=== PATIENT | female | born 1985 | race Caucasian/White ===

== ENCOUNTER 2019-05-22 18:53 | Outpatient (CLI) | payer OTHER ==
[2019-05-22] MEDS ORDERED: LACTATED RINGERS 1,000 ML IV ONE (20:47)
[2019-05-22] MEDS ORDERED: PSEUDOEPHEDRINE 30 MG TAB PO ONE (21:19)
[2019-05-22 21:35] LABS: Bacteria,Urine 1+ /HPF (Negative); Bilirubin,Urine NEG (Negative); Blood,Urine NEG (Negative); Color,Urine Yellow (Yellow); Protein,Urine <15 mg/dL mg/dL (Negative); Urobilinogen,Urine < 2.0 mg/dL (<2.0)
[2019-05-22 22:13] VITALS: BP 120/66
--- NOTE | 2019-05-22 22:57 | Ultrasound Report ---
Obstetrical ultrasound. 05/22/2019. HISTORY: Vaginal bleeding. FINDINGS: A single viable intrauterine in the breech presentation is dated 21 weeks 0 days. The placenta is located at the fundus. Negative for abruption. heart tones are 143 bpm. Cervical length is 3.1 cm. Estimated weight is 411 g. Amniotic fluid is subjectively normal. IMPRESSION: 1. Early viable intrauterine dated 21 weeks 0 days. 2. Negative for abruption. Signer Name: Lg Lopez MD Signed: 05/22/2019 10:52 PM Workstation Name: [id number]
== END 2019-05-22 22:25 | disposition home or self-care (01) ==
LOC: MERGE 18:53 → TRG 18:53
PROVIDERS: ATTEND Obstetrics & Gynecology
DX: O46.92 Antepartum hemorrhage, unspecified, second trimester (principal); Z3A.20 20 weeks gestation of pregnancy
CPT/HCPCS: 76805; 81001

== ENCOUNTER 2019-06-27 12:56 | Emergency (ER) | payer MEDICAID ==
--- NOTE | 2019-06-27 14:23 | Event Note ---
ED Screening Note ED Screening Note: 7 months headache fever body aches no vomiting no diarrhea yesterday no abd pain no vaginal no PMHx no allergies to meds [employer]AF PRINTER: [facility]
[2019-06-27 14:25] VITALS: BP 118/79
--- NOTE | 2019-06-27 14:25 | Emergency Department Report ---
- General Chief Complaint: Weakness Stated Complaint: COLD/FLU SX Time Seen by Provider: 06/27/19 14:21 Source: patient Mode of arrival: Ambulatory Limitations: Language Barrier - History of Present Illness Initial Comments: pt is a 33 yo female who presents to the ED with c/o flu symptoms that began yesterday. she is currently 7 months . she has associated headache, feve r. she denies any vomiting, diarrhea, abd pain or vaginal bleeding. no PMHx. no allergies to meds. 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 her children at home also have flu like symptoms. - Related Data Home Medications Medication Instructions Recorded Confirmed Last Taken Plus Multivitamin Tab 1 tab PO DAILY 07/06/15 07/06/15 07/05/15 09:00 Previous Rx's Medication Instructions Recorded Last Taken Type Pnv,Calcium 72/Iron/Folic Acid 1 each PO DAILY #30 tablet 01/16/15 Unknown Rx [ Plus Tablet] Ibuprofen [Motrin 600 MG tab] 600 mg PO Q8H PRN #30 tablet 07/07/15 Unknown Rx Multivitamin with Iron 1 each PO DAILY #30 tablet 07/07/15 Unknown Rx [Multivitamins with Iron] oxyCODONE /ACETAMINOPHEN [Percocet 1 tab PO Q6HR PRN #30 tablet 07/07/15 Unknown Rx 5/325] medroxyPROGESTERone ACETATE 10 mg PO QDAY #10 tablet 01/31/16 Unknown Rx [Provera] traMADoL [Ultram] 50 mg PO Q6HR PRN #14 tablet 01/31/16 Unknown Rx Oseltamivir [Tamiflu] 75 mg PO BID 5 Days #10 cap 06/27/19 Unknown Rx Allergies Allergy/AdvReac Type Severity Reaction Status Date / Time No Known Allergies Allergy Verified 05/23/19 08:51 ED Review of Systems ROS: Stated complaint: COLD/FLU SX Other details as noted in HPI Comment: All other systems reviewed and negative ED Past Medical Hx - Past Medical History Previous Medical History?: Yes Hx Hypertension: No Hx Congestive Heart Failure: No Hx Diabetes: No Hx Deep Vein Thrombosis: No Hx Renal Disease: No Hx Sickle Cell Disease: No Hx Seizures: No Hx Psychiatric Treatment: Yes (DEPRESSION) Hx Asthma: No Hx COPD: No Hx HIV: No Additional medical history: Pt had high blood pressure during - Surgical History Past Surgical History?: Yes Additional Surgical History: x 3 - Social History Smoking Status: Never Smoker - Medications Home Medications: Home Medications Medication Instructions Recorded Confirmed Last Taken Type Pnv,Calcium 72/Iron/Folic Acid 1 each PO DAILY #30 tablet 01/16/15 Unknown Rx [ Plus Tablet] Plus Multivitamin Tab 1 tab PO DAILY 07/06/15 07/06/15 07/05/15 09:00 History Ibuprofen [Motrin 600 MG tab] 600 mg PO Q8H PRN #30 tablet 07/07/15 Unknown Rx Multivitamin with Iron 1 each PO DAILY #30 tablet 07/07/15 Unknown Rx [Multivitamins with Iron] oxyCODONE /ACETAMINOPHEN [Percocet 1 tab PO Q6HR PRN #30 tablet 07/07/15 Unknown Rx 5/325] medroxyPROGESTERone ACETATE 10 mg PO QDAY #10 tablet 01/31/16 Unknown Rx [Provera] traMADoL [Ultram] 50 mg PO Q6HR PRN #14 tablet 01/31/16 Unknown Rx Oseltamivir [Tamiflu] 75 mg PO BID 5 Days #10 cap 06/27/19 Unknown Rx ED Physical Exam - General Limitations: No Limitations General appearance: alert, in no apparent distress - Head Head exam: Present: atraumatic, normocephalic - Eye Eye exam: Present: normal appearance - ENT ENT exam: Present: normal orophraynx, mucous membranes moist, TM's normal bilaterally, normal external ear exam, other (clear nasal drainage) - Respiratory Respiratory exam: Present: normal lung sounds bilaterally. Absent: respiratory distress, wheezes, rales, rhonchi, stridor, chest wall tenderness, accessory muscle use, decreased breath sounds, prolonged expiratory - Cardiovascular Cardiovascular Exam: Present: regular rate, normal rhythm, normal heart sounds. Absent: systolic murmur, diastolic murmur, rubs, gallop - Neurological Exam Neurological exam: Present: alert, oriented X3 - Psychiatric Psychiatric exam: Present: normal affect, normal mood - Skin Skin exam: Present: warm, dry, intact ED Course Vital Signs 06/27/19 06/27/19 14:21 16:49 Temperature 98.6 F Pulse Rate 97 H Respiratory 18 18 Rate Blood Pressure 118/79 Blood Pressure 118/79 [Right] O2 Sat by Pulse 98 Oximetry ED Medical Decision Making - Medical Decision Making pt is a 33 yo female who presents to the ED with c/o flu symptoms that began yesterday. she is currently 7 months . she has associated headache, fever. she denies any vomiting, diarrhea, abd pain or vaginal bleeding. no PMHx. no allergies to meds. 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 her children at home also have flu like symptoms. vitals are stable. normal oropharynx, normal TMs and canals, breath sounds are clear bilaterally. Patient has clinical signs and symptoms of influenza and has had sick contacts. Will place patient on tamiflu. advised pt please take medication as prescribed. increase your fluid intake over the next several days.may take tylenol for headache or fever. may use a humidifier. follow up with your primary care doctor and PAEDIATRIC PHYSIOTHERAPIST in the next 2-3 days for reevaluation. return to the emergency room immediately for any new or worsening symptoms. language interpretation by security operations analyst - Differential Diagnosis influenza, URI, PNA, otitis, pharyngitis, sinusitis Critical care attestation.: If time is entered above; I have spent that time in minutes in the direct care of this critically ill patient, excluding procedure time. ED Disposition Clinical Impression: Influenza Disposition: DC-01 TO HOME OR SELFCARE Is pt being admited?: No Does the pt Need Aspirin: No Condition: Stable Instructions: Influenza (ED) Additional Instructions: please take medication as prescribed. increase your fluid intake over the next several days.may take tylenol for headache or fever. may use a humidifier. follo w up with your primary care doctor and PAEDIATRIC PHYSIOTHERAPIST in the next 2-3 days for reevaluation. return to the emergency room immediately for any new or worsening symptoms. por favor tome la medicacin segn lo prescrito. aumente la ingesta de lquidos en los prximos chavez. Puede stacey tylenol para el dolor de pratima o la fiebre. puede usar un humidificador. marco un seguimiento con shaver mdico de atencin pr imaria y obstetra / gineclogo en los prximos 2-3 chavez para la reevaluacin. Regrese a la rose marie de emergencias de inmediato por cualquier sntoma nuevo o que empeore. Prescriptions: Oseltamivir [Tamiflu] 75 mg PO BID 5 Days #10 cap Referrals: your, primary care doctor [Other] - 2-3 Days your, PAEDIATRIC PHYSIOTHERAPIST [Other] - 2-3 Days Time of Disposition: 15:14 Print Language: TANZANIAN
[2019-06-27] MEDS ORDERED: ACETAMINOPHEN 325 MG TAB PO ONE (16:39)
== END 2019-06-27 16:50 | disposition home or self-care (01) ==
LOC: ED 12:56
DX: O99.513 Diseases of the respiratory system complicating pregnancy, third trimester (principal); J11.1 Influenza due to unidentified influenza virus with other respiratory manifestations; Z3A.28 28 weeks gestation of pregnancy
CPT/HCPCS: 99282

== ENCOUNTER 2021-12-12 19:22 | Inpatient (IN) | payer SELFPAY ==
[2021-12-12 21:09] LABS: Basophils % (Auto) 0.2 % (0.0-1.8); Eosinophils # (Auto) 0.1 K/mm3 (0.0-0.4); Eosinophils % (Auto) 0.4 % (0.0-4.3); Hematocrit 33.7 % (30.3-42.9); Hemoglobin 11.3 gm/dl (10.1-14.3); Lymphocytes # (Auto) 1.8 K/mm3 (1.2-5.4); Lymphocytes % (Auto) 14.4 % (13.4-35.0); Mean Corpuscular HGB Conc 34 % (30-34); Mean Corpuscular Volume 82 fl (79-97); Monocytes # (Auto) 0.8 K/mm3 (0.0-0.8); Monocytes % (Auto) 6.8 % (0.0-7.3); Platelet Count 258 K/mm3 (140-440); Red Blood Count 4.13 M/mm3 (3.65-5.03); Red Cell Distribution Width 15.5 % (13.2-15.2)
[2021-12-12 21:35] LABS: Alanine Aminotransferase 24 units/L (7-56); Albumin 4.5 g/dL (3.9-5); Blood Urea Nitrogen 9 mg/dL (7-17); Calcium 9.1 mg/dL (8.4-10.2); Hemolysis Index 9
[2021-12-12 21:44] LABS: BUN/Creatinine Ratio 23
[2021-12-12] MEDS ORDERED: ONDANSETRON 4 MG/2 ML INJ IV ONE (22:22)
[2021-12-12] MEDS ORDERED: SODIUM CHLORIDE 0.9% 1000 ML 1,000 ML IV ONE (22:22)
[2021-12-12] MEDS ORDERED: MORPHINE 4 MG/1 ML INJ IV ONE ×2 (22:22→22:23)
--- NOTE | 2021-12-12 23:10 | Emergency Department Report ---
ED Abdominal Pain HPI - General Chief Complaint: Abdominal Pain Stated Complaint: STOMACH PAIN Time Seen by Provider: 12/12/21 23:08 Source: patient Mode of arrival: Ambulatory Limitations: Language Barrier - History of Present Illness Initial Comments: 35-year-old female no significant past medical history presents to the hospital from urgent care clinic with abdominal pain. Patient has had upper quadrant pain since this morning with associated nausea and vomiting. No fever reported. hx of x 3. Pain is moderate to severe in intensity, worse with palpation, and no alleviating factors reported. No urinary symptoms reported. Severity scale (0 -10): 10 - Related Data Home Medications Medication Instructions Recorded Confirmed Last Taken Plus Multivitamin Tab 1 tab PO DAILY 07/06/15 07/06/15 07/05/15 09:00 Previous Rx's Medication Instructions Recorded Last Taken Type Pnv,Calcium 72/Iron/Folic Acid 1 each PO DAILY #30 tablet 01/16/15 Unknown Rx [ Plus Tablet] Ibuprofen [Motrin 600 MG tab] 600 mg PO Q8H PRN #30 tablet 07/07/15 Unknown Rx Multivitamin with Iron 1 each PO DAILY #30 tablet 07/07/15 Unknown Rx [Multivitamins with Iron] oxyCODONE /ACETAMINOPHEN [Percocet 1 tab PO Q6HR PRN #30 tablet 07/07/15 Unknown Rx 5/325] medroxyPROGESTERone ACETATE 10 mg PO QDAY #10 tablet 01/31/16 Unknown Rx [Provera] traMADoL [Ultram] 50 mg PO Q6HR PRN #14 tablet 01/31/16 Unknown Rx Oseltamivir [Tamiflu] 75 mg PO BID 5 Days #10 cap 06/27/19 Unknown Rx Allergies Allergy/AdvReac Type Severity Reaction Status Date / Time No Known Allergies Allergy Verified 05/23/19 08:51 ED Review of Systems ROS: Stated complaint: STOMACH PAIN Other details as noted in HPI Comment: All other systems reviewed and negative ED Past Medical Hx - Past Medical History Hx Hypertension: No Hx Congestive Heart Failure: No Hx Diabetes: No Hx Deep Vein Thrombosis: No Hx Renal Disease: No Hx Sickle Cell Disease: No Hx Seizures: No Hx Psychiatric Treatment: Yes (DEPRESSION) Hx Asthma: No Hx COPD: No Hx HIV: No Additional medical history: Pt had high blood pressure during - Surgical History Additional Surgical History: x 3 - Social History Smoking Status: Never Smoker - Medications Home Medications: Home Medications Medication Instructions Recorded Confirmed Last Taken Type Pnv,Calcium 72/Iron/Folic Acid 1 each PO DAILY #30 tablet 01/16/15 Unknown Rx [ Plus Tablet] Plus Multivitamin Tab 1 tab PO DAILY 07/06/15 07/06/15 07/05/15 09:00 History Ibuprofen [Motrin 600 MG tab] 600 mg PO Q8H PRN #30 tablet 07/07/15 Unknown Rx Multivitamin with Iron 1 each PO DAILY #30 tablet 07/07/15 Unknown Rx [Multivitamins with Iron] oxyCODONE /ACETAMINOPHEN [Percocet 1 tab PO Q6HR PRN #30 tablet 07/07/15 Unknown Rx 5/325] medroxyPROGESTERone ACETATE 10 mg PO QDAY #10 tablet 01/31/16 Unknown Rx [Provera] traMADoL [Ultram] 50 mg PO Q6HR PRN #14 tablet 01/31/16 Unknown Rx Oseltamivir [Tamiflu] 75 mg PO BID 5 Days #10 cap 06/27/19 Unknown Rx ED Physical Exam - General Limitations: Language Barrier - Other Other exam information: General: Mild distress secondary to pain Head: Atraumatic Eyes: normal appearance ENT: Moist mucous membranes Neck: Normal appearance, no midline tenderness Chest: Clear to auscultation bilaterally CV: Regular rate and rhythm Abdomen: Soft, normal bowel sounds, right upper quadrant tenderness, nondistended, no rebound or guarding Back: Normal inspection Extremity: Normal inspection, full range of motion Neuro: Alert O x 3, no facial asymmetry, speech clear, no gross motor sensory deficit Psych: Appropriate behavior Skin: No rash ED Course Vital Signs 12/12/21 20:47 Temperature 98.1 F Pulse Rate 64 Respiratory 16 Rate Blood Pressure 147/79 O2 Sat by Pulse 100 Oximetry - Reevaluation(s) Reevaluation #1: 12/13/21 02:02 Patient still having pain and vomited despite morphine and Zofran in the ED ED Medical Decision Making - Lab Data Result diagrams: 12/12/21 20:50 12/12/21 20:50 Lab Results 12/12/21 12/12/21 12/12/21 Range/Units 20:50 20:50 20:50 WBC 12.2 H (4.5-11.0) K/mm3 RBC 4.13 (3.65-5.03) M/mm3 Hgb 11.3 (10.1-14.3) gm/dl Hct 33.7 (30.3-42.9) % MCV 82 (79-97) fl MCH 27 L (28-32) pg MCHC 34 (30-34) % RDW 15.5 H (13.2-15.2) % Plt Count 258 (140-440) K/mm3 Lymph % (Auto) 14.4 (13.4-35.0) % [place] % (Auto) 6.8 (0.0-7.3) % Eos % (Auto) 0.4 (0.0-4.3) % Baso % (Auto) 0.2 (0.0-1.8) % Lymph # (Auto) 1.8 (1.2-5.4) K/mm3 [place] # (Auto) 0.8 (0.0-0.8) K/mm3 Eos # (Auto) 0.1 (0.0-0.4) K/mm3 Baso # (Auto) 0.0 (0.0-0.1) K/mm3 Seg Neutrophils % 78.2 H (40.0-70.0) % Seg Neutrophils # 9.5 H (1.8-7.7) K/mm3 Sodium 136 L (137-145) mmol/L Potassium 3.7 (3.6-5.0) mmol/L Chloride 99.2 (98-107) mmol/L Carbon Dioxide 22 (22-30) mmol/L Anion Gap 19 mmol/L BUN 9 (7-17) mg/dL Creatinine 0.4 L (0.6-1.2) mg/dL Estimated GFR > 60 ml/min BUN/Creatinine Ratio 23 % Glucose 107 H (65-100) mg/dL Calcium 9.1 (8.4-10.2) mg/dL Total Bilirubin 0.30 (0.1-1.2) mg/dL AST 18 (5-40) units/L ALT 24 (7-56) units/L Alkaline Phosphatase 92 (35-129) units/L Total Protein 7.8 (6.3-8.2) g/dL Albumin 4.5 (3.9-5) g/dL Albumin/Globulin Ratio 1.4 % Lipase 30 (13-60) units/L HCG, Quant (0-4) mIU/mL Urine Bilirubin (Negative) 12/12/21 12/13/21 Range/Units 21:31 02:06 WBC (4.5-11.0) K/mm3 RBC (3.65-5.03) M/mm3 Hgb (10.1-14.3) gm/dl Hct (30.3-42.9) % MCV (79-97) fl MCH (28-32) pg MCHC (30-34) % RDW (13.2-15.2) % Plt Count (140-440) K/mm3 Lymph % (Auto) (13.4-35.0) % [place] % (Auto) (0.0-7.3) % Eos % (Auto) (0.0-4.3) % Baso % (Auto) (0.0-1.8) % Lymph # (Auto) (1.2-5.4) K/mm3 [place] # (Auto) (0.0-0.8) K/mm3 Eos # (Auto) (0.0-0.4) K/mm3 Baso # (Auto) (0.0-0.1) K/mm3 Seg Neutrophils % (40.0-70.0) % Seg Neutrophils # (1.8-7.7) K/mm3 Sodium (137-145) mmol/L Potassium (3.6-5.0) mmol/L Chloride (98-107) mmol/L Carbon Dioxide (22-30) mmol/L Anion Gap mmol/L BUN (7-17) mg/dL Creatinine (0.6-1.2) mg/dL Estimated GFR ml/min BUN/Creatinine Ratio % Glucose (65-100) mg/dL Calcium (8.4-10.2) mg/dL Total Bilirubin (0.1-1.2) mg/dL AST (5-40) units/L ALT (7-56) units/L Alkaline Phosphatase (35-129) units/L Total Protein (6.3-8.2) g/dL Albumin (3.9-5) g/dL Albumin/Globulin Ratio % Lipase (13-60) units/L HCG, Quant < 2 (0-4) mIU/mL Urine Bilirubin Neg (Negative) - Radiology Data Radiology results: report reviewed ULTRASOUND ABDOMEN, LIMITED INDICATION / CLINICAL INFORMATION: ruq pain n, v. COMPARISON: None available. TECHNIQUE: Using transcutaneous protocol multiple grayscale and color Doppler images were captured and stored of the pancreas, liver, aorta, inferior vena cava, gallbladder, common bile duct, and right kidney. FINDINGS: PANCREAS: Visualized portion shows no significant abnormality. AORTA: Longitudinal images of the aorta demonstrate no significant abnormality. IVC: Longitudinal images of the inferior vena cava demonstrate no significant abnormality. LIVER: Right hepatic lobe measures 18.5 cm. Nonspecific minimally pulsatile hepatopedal blood flow in the main portal vein. GALLBLADDER: Gallstones within the neck of the gallbladder. Gallbladder is distended measuring 15.6 cm. No wall thickening. BILE DUCTS: No significant abnormality. Common bile duct measures 3.3 mm. RIGHT KIDNEY: No acute findings are suggested to involve the right kidney. FREE FLUID: None. ADDITIONAL FINDINGS: None. IMPRESSION: 1. Distended gallbladder with stone impacted within gallbladder neck. No pe richolecystic fluid. Acute cholecystitis and/or gallbladder hydrops not excluded. - Medical Decision Making 35-year-old female presents to the hospital upper quadrant pain, nausea, and vomiting. Patient continues to have symptoms despite ED treatment. CT findings show gallbladder neck stone and distention. Cannot rule out acute cholecystitis. Patient has mild elevation in WBC count without elevated LFTs, lipase, fever, or tachycardia. IV Rocephin ordered. Case discussed with general surgery who will consult. Patient will be admitted to the hospitalist. - Differential Diagnosis Pancreatitis, cholecystitis, appendicitis, renal colic, UTI Critical Care Time: No Critical care attestation.: If time is entered above; I have spent that time in minutes in the direct care of this critically ill patient, excluding procedure time. ED Disposition Clinical Impression: Biliary colic, Intractable abdominal pain, Intractable nausea and vomiting, Cholelithiasis Disposition: ADMITTED INPATIENT Is pt being admited?: Yes Condition: Stable Instructions: Abdominal Pain (ED) Time of Disposition: 02:19 (Dr Martinez/[facility])
--- NOTE | 2021-12-13 00:58 | Ultrasound Report ---
ULTRASOUND ABDOMEN, LIMITED INDICATION / CLINICAL INFORMATION: ruq pain n, v. COMPARISON: None available. TECHNIQUE: Using transcutaneous protocol multiple grayscale and color Doppler images were captured an d stored of the pancreas, liver, aorta, inferior vena cava, gallbladder, common bile duct, and right kidney. FINDINGS: PANCREAS: Visualized portion shows no significant abnormality. AORTA: Longitudinal images of the aorta demonstrate no significant abnormality. IVC: Longitudinal images of the inferior vena cava demonstrate no significant abnormality. LIVER: Right hepatic lobe measures 18.5 cm. Nonspecific minimally pulsatile hepatopedal blood flow in the main portal vein. GALLBLADDER: Gallstones within the neck of the gallbladder. Gallbladder is distended measuring 15.6 c m. No wall thickening. BILE DUCTS: No significant abnormality. Common bile duct measures 3.3 mm. RIGHT KIDNEY: No acute findings are suggested to involve the right kidney. FREE FLUID: None. ADDITIONAL FINDINGS: None. IMPRESSION: 1. Distended gallbladder with stone impacted within gallbladder neck. No pericholecystic fluid. Acute cholecystitis and/or gallbladder hydrops not excluded. Signer Name: Lukas Ruff II, MD Signed: 12/13/2021 12:53 AM Workstation Name: [id number]
[2021-12-13 02:14] LABS: Bilirubin,Urine NEG (Negative); Blood,Urine NEG (Negative); Color,Urine Yellow (Yellow); Protein,Urine <15 mg/dL mg/dL (Negative); Urobilinogen,Urine < 2.0 mg/dL (<2.0)
[2021-12-13] MEDS ORDERED: MORPHINE 4 MG/1 ML INJ IV ONE (02:16)
[2021-12-13] MEDS ORDERED: ONDANSETRON 4 MG/2 ML INJ IV ONE (02:17)
[2021-12-13] MEDS ORDERED: cefTRIAXone/NS 1 GM/50 ML 1 GM/50 ML BAG IV ONE (02:18)
[2021-12-13 02:21] LABS: Amorphous Crystals,Urine 3+
[2021-12-13] MEDS ORDERED: ACETAMINOPHEN 325 MG TAB PO PRN (02:42)
[2021-12-13] MEDS ORDERED: ALBUTEROL 2.5 MG/3 ML NEBU IH PRN (02:42)
--- NOTE | 2021-12-13 02:50 | History and Physical Report ---
History of Present Illness Date of examination: 12/13/21 Date of admission: 12/13/21 Chief complaint: Abdominal pain History of present illness: 5-year-old female no significant past medical history presents to the hospital from urgent care clinic with abdominal pain. Patient has had upper quadrant pain since this morning with associated nausea and vomiting. No fever reported. hx of x 3. Pain is moderate to severe in intensity, worse with palpation, and no alleviating factors reported. No urinary symptoms reported. CT findings show gallbladder neck stone and distention. Cannot rule out acute cholecystitis. Patient has mild elevation in WBC count without elevated LFTs, lipase, fever, or tachycardia. Case discussed with general surgery who will consult. Patient will be admitted to the hospitalist. Past History Past Medical History: hypertension, other (Depression) Past Surgical History: Social history: no significant social history Family history: no significant family history Medications and Allergies Allergies Allergy/AdvReac Type Severity Reaction Status Date / Time No Known Allergies Allergy Verified 05/23/19 08:51 Home Medications Medication Instructions Recorded Confirmed Last Taken Type Pnv,Calcium 72/Iron/Folic Acid 1 each PO DAILY #30 tablet 01/16/15 Unknown Rx [ Plus Tablet] Plus Multivitamin Tab 1 tab PO DAILY 07/06/15 07/06/15 07/05/15 09:00 History Ibuprofen [Motrin 600 MG tab] 600 mg PO Q8H PRN #30 tablet 07/07/15 Unknown Rx Multivitamin with Iron 1 each PO DAILY #30 tablet 07/07/15 Unknown Rx [Multivitamins with Iron] oxyCODONE /ACETAMINOPHEN [Percocet 1 tab PO Q6HR PRN #30 tablet 07/07/15 Unknown Rx 5/325] medroxyPROGESTERone ACETATE 10 mg PO QDAY #10 tablet 01/31/16 Unknown Rx [Provera] traMADoL [Ultram] 50 mg PO Q6HR PRN #14 tablet 01/31/16 Unknown Rx Oseltamivir [Tamiflu] 75 mg PO BID 5 Days #10 cap 06/27/19 Unknown Rx Active Meds: Active Medications Ceftriaxone Sodium (Rocephin/Ns 1 Gm/50 Ml) 1 gm in 50 mls @ 100 mls/hr IV ONCE ONE; Protocol Stop: 12/13/21 02:47 Review of Systems All systems: negative Gastrointestinal: abdominal pain, nausea, vomiting Exam - Constitutional Vitals: Temp Pulse Resp BP Pulse Ox 98.1 F 64 16 147/79 100 12/12/21 20:47 12/12/21 20:47 12/12/21 20:47 12/12/21 20:47 12/12/21 20:47 General appearance: Present: no acute distress, well-nourished - EENT Eyes: Present: PERRL ENT: hearing intact, clear oral mucosa - Neck Neck: Present: supple, normal ROM - Respiratory Respiratory effort: normal Respiratory: bilateral: CTA - Cardiovascular Heart Sounds: Present: S1 & S2. Absent: rub, click - Extremities Extremities: pulses symmetrical, No edema Peripheral Pulses: within normal limits - Abdominal General gastrointestinal: Present: soft, non-tender, non-distended, normal bowel sounds Female genitourinary: Present: normal - Integumentary Integumentary: Present: clear, warm, dry - Musculoskeletal Musculoskeletal: gait normal, strength equal bilaterally - Psychiatric Psychiatric: appropriate mood/affect, intact judgment & insight - Neurologic Neurologic: CNII-XII intact, moves all extremities Results - Labs CBC & Chem 7: 12/12/21 20:50 12/12/21 20:50 Labs: Laboratory Last Values WBC 12.2 K/mm3 (4.5-11.0) H 12/12/21 20:50 RBC 4.13 M/mm3 (3.65-5.03) 12/12/21 20:50 Hgb 11.3 gm/dl (10.1-14.3) 12/12/21 20:50 Hct 33.7 % (30.3-42.9) 12/12/21 20:50 MCV 82 fl (79-97) 12/12/21 20:50 MCH 27 pg (28-32) L 12/12/21 20:50 MCHC 34 % (30-34) 12/12/21 20:50 RDW 15.5 % (13.2-15.2) H 12/12/21 20:50 Plt Count 258 K/mm3 (140-440) 12/12/21 20:50 Lymph % (Auto) 14.4 % (13.4-35.0) 12/12/21 20:50 [place] % (Auto) 6.8 % (0.0-7.3) 12/12/21 20:50 Eos % (Auto) 0.4 % (0.0-4.3) 12/12/21 20:50 Baso % (Auto) 0.2 % (0.0-1.8) 12/12/21 20:50 Lymph # (Auto) 1.8 K/mm3 (1.2-5.4) 12/12/21 20:50 [place] # (Auto) 0.8 K/mm3 (0.0-0.8) 12/12/21 20:50 Eos # (Auto) 0.1 K/mm3 (0.0-0.4) 12/12/21 20:50 Baso # (Auto) 0.0 K/mm3 (0.0-0.1) 12/12/21 20:50 Seg Neutrophils % 78.2 % (40.0-70.0) H 12/12/21 20:50 Seg Neutrophils # 9.5 K/mm3 (1.8-7.7) H 12/12/21 20:50 Sodium 136 mmol/L (137-145) L 12/12/21 20:50 Potassium 3.7 mmol/L (3.6-5.0) 12/12/21 20:50 Chloride 99.2 mmol/L (98-107) 12/12/21 20:50 Carbon Dioxide 22 mmol/L (22-30) 12/12/21 20:50 Anion Gap 19 mmol/L 12/12/21 20:50 BUN 9 mg/dL (7-17) 12/12/21 20:50 Creatinine 0.4 mg/dL (0.6-1.2) L 12/12/21 20:50 Estimated GFR > 60 ml/min 12/12/21 20:50 BUN/Creatinine Ratio 23 % 12/12/21 20:50 Glucose 107 mg/dL (65-100) H 12/12/21 20:50 Calcium 9.1 mg/dL (8.4-10.2) 12/12/21 20:50 Total Bilirubin 0.30 mg/dL (0.1-1.2) 12/12/21 20:50 AST 18 units/L (5-40) 12/12/21 20:50 ALT 24 units/L (7-56) 12/12/21 20:50 Alkaline Phosphatase 92 units/L (35-129) 12/12/21 20:50 Total Protein 7.8 g/dL (6.3-8.2) 12/12/21 20:50 Albumin 4.5 g/dL (3.9-5) 12/12/21 20:50 Albumin/Globulin Ratio 1.4 % 12/12/21 20:50 Lipase 30 units/L (13-60) 12/12/21 20:50 HCG, Quant < 2 mIU/mL (0-4) 12/12/21 21:31 Urine Color Yellow (Yellow) 12/13/21 02:06 Urine Turbidity Cloudy (Clear) 12/13/21 02:06 Urine pH 8.0 (5.0-7.0) H 12/13/21 02:06 Ur Specific [place] 1.013 (1.003-1.030) 12/13/21 02:06 Urine Protein <15 mg/dl mg/dL (Negative) 12/13/21 02:06 Urine Glucose (UA) Neg mg/dL (Negative) 12/13/21 02:06 Urine Ketones Neg mg/dL (Negative) 12/13/21 02:06 Urine Blood Neg (Negative) 12/13/21 02:06 Urine Nitrite Neg (Negative) 12/13/21 02:06 Urine Bilirubin Neg (Negative) 12/13/21 02:06 Urine Urobilinogen < 2.0 mg/dL (<2.0) 12/13/21 02:06 Ur Leukocyte Esterase Tr (Negative) 12/13/21 02:06 Urine WBC (Auto) Not Reportable 12/13/21 02:06 Urine RBC (Auto) Not Reportable 12/13/21 02:06 Amorphous Crystals 3+ 12/13/21 02:06 - Imaging and Cardiology CT scan - abdomen: report reviewed Assessment and Plan VTE prophylaxis?: Chemical Plan of care discussed with patient/family: Yes - Patient Problems (1) Cholelithiasis Status: Acute Plan to address problem: Admit the patient to the medical floor. NPO. D5 half-normal saline at the rate of 100 cc/h. Pepcid 20 mg IV every 12 hours. Morphine 2 mg IV every 4 hours. Surgical evaluation. Zosyn 4.5 g IV every 8 hours. Recheck CBC CMP in the morning (2) Intractable abdominal pain Status: Acute Plan to address problem: NPO. D5 half-normal saline at the rate of 100 cc/h. Pepcid 20 mg IV every 12 hours. Morphine 2 mg IV every 4 hours. Surgical evaluation. (3) Intractable nausea and vomiting Status: Acute Plan to address problem: NPO. D5 half-normal saline at the rate of 100 cc/h. Pepcid 20 mg IV every 12 hours. Zofran 4 mg IV every 6 hours as needed (4) History of 2 sections Status: Acute Plan to address problem: Stable. (5) DVT prophylaxis Status: Acute Plan to address problem: Heparin 5000 units subcu every 12 hours for DVT prophylaxis. Pepcid 20 mg IV every 12 hours for GI prophylaxis. Patient is a full code
[2021-12-13] MEDS ORDERED: IPRATROPIUM/ALBUTEROL SULFATE 3 ML AMPUL.NEB IH SCH (08:00)
[2021-12-13] MEDS: MORPHINE 4 MG/1 ML INJ IV PRN ×5 (08:11→23:08)
[2021-12-13] MEDS ORDERED: OSELTAMIVIR 75 MG CAP PO SCH (10:00)
[2021-12-13] MEDS: HEPARIN 5,000 UNIT/1 ML VIAL SUB-Q SCH ×2 (11:01→21:37)
[2021-12-13] MEDS: FAMOTIDINE 20 MG/2 ML INJ IV SCH ×2 (11:02→21:37)
[2021-12-13] MEDS: MULTIVITAMINS ,THERAPEUTIC TAB PO SCH (11:02)
[2021-12-13] MEDS: PIPERACIL/TAZOBACTA 4.5/NS 100 4.5 GM/100 ML VIAL IV SCH ×2 (11:02→19:37)
--- NOTE | 2021-12-13 13:12 | Consultation ---
History of Present Illness Consult date: 12/13/21 Reason for consult: gallstones - History of present illness History of present illness: 35-year-old female admitted to the emergency room with a 2-day course of right upper quadrant epigastric pain with nausea and vomiting. She denies having this pain before. Patient had abdominal ultrasound that showed distended gallbladder with a gallstone stuck in the neck of the gallbladder. Patient says her pain is 10 out of 10 and radiates to the back on the right side. Past History Past Medical History: hypertension, other (Depression) Past Surgical History: Social history: no significant social history Family history: no significant family history Medications and Allergies Allergies Allergy/AdvReac Type Severity Reaction Status Date / Time No Known Allergies Allergy Verified 05/23/19 08:51 Home Medications Medication Instructions Recorded Confirmed Last Taken Type Pnv,Calcium 72/Iron/Folic Acid 1 each PO DAILY #30 tablet 01/16/15 Unknown Rx [ Plus Tablet] Plus Multivitamin Tab 1 tab PO DAILY 07/06/15 07/06/15 07/05/15 09:00 History Ibuprofen [Motrin 600 MG tab] 600 mg PO Q8H PRN #30 tablet 07/07/15 Unknown Rx Multivitamin with Iron 1 each PO DAILY #30 tablet 07/07/15 Unknown Rx [Multivitamins with Iron] oxyCODONE /ACETAMINOPHEN [Percocet 1 tab PO Q6HR PRN #30 tablet 07/07/15 Unknown Rx 5/325] medroxyPROGESTERone ACETATE 10 mg PO QDAY #10 tablet 01/31/16 Unknown Rx [Provera] traMADoL [Ultram] 50 mg PO Q6HR PRN #14 tablet 01/31/16 Unknown Rx Oseltamivir [Tamiflu] 75 mg PO BID 5 Days #10 cap 06/27/19 Unknown Rx Active Meds: Active Medications Acetaminophen (Acetaminophen 325 Mg Tab) 650 mg PO Q4H PRN PRN Reason: Pain MILD(1-3)/Fever >100.5/BENSON Albuterol (Albuterol 2.5 Mg/3 Ml Nebu) 2.5 mg IH Q3HRT PRN PRN Reason: Shortness Of Breath Famotidine (Famotidine 20 Mg/2 Ml Inj) 20 mg IV BID TK Last Admin: 12/13/21 11:02 Dose: 20 mg Heparin Sodium (Porcine) (Heparin 5,000 Unit/1 Ml Vial) 5,000 unit SUB-Q Q12HR [facility] Last Admin: 12/13/21 11:01 Dose: 5,000 unit Dextrose/Sodium Chloride (D5/0.45ns) 1,000 mls @ 100 mls/hr IV DIRECT TK Piperacillin Sod/Tazobactam Sod (Zosyn/Ns 4.5gm/100ml) 4.5 gm in 100 mls @ 200 mls/hr IV Q8H [facility]; Protocol Last Admin: 12/13/21 11:02 Dose: 200 mls/hr Morphine Sulfate (Morphine 2 Mg/1 Ml Inj) 2 mg IV Q4H PRN PRN Reason: Pain, Moderate (4-6) Morphine Sulfate (Morphine 4 Mg/1 Ml Inj) 4 mg IV Q4H PRN PRN Reason: Pain , Severe (7-10) Last Admin: 12/13/21 11:02 Dose: 4 mg Multivitamins (Multivitamins ,Therapeutic Tab) 1 each PO DAILY [facility] Last Admin: 12/13/21 11:02 Dose: 1 each Ondansetron HCl (Ondansetron 4 Mg/2 Ml Inj) 4 mg IV Q8H PRN PRN Reason: Nausea And Vomiting Sodium Chloride (Sodium Chloride 0.9% 10 Ml Flush Syringe) 10 ml IV BID [facility] Last Admin: 12/13/21 11:02 Dose: 10 ml Sodium Chloride (Sodium Chloride 0.9% 10 Ml Flush Syringe) 10 ml IV PRN PRN PRN Reason: LINE FLUSH Review of Systems All systems: negative - Constitutional poor appetite - Gastrointestinal abdominal pain, nausea, vomiting, dyspepsia/bloating Exam Vital Signs Temp Pulse Resp BP Pulse Ox 98.1 F 64 16 147/79 100 12/12/21 20:47 12/12/21 20:47 12/12/21 20:47 12/12/21 20:47 12/12/21 20:47 - General physical appearance Positive: well developed, no distress, severe pain - Eyes Positive: PERRL. Negative: icteric - ENT Positive: no hearing loss - Respiratory Positive: normal expansion, normal respiratory effort - Cardiovascular Heart Sounds: Present: S1 & S2 - Extremities Extremities: no ischemia - Abdomen Abdomen: Present: soft, distended, other (Tender to palpation in the epigastric and right upper quadrant area). Absent: guarding, rigid Results - Labs 12/12/21 20:50 12/12/21 20:50 Abnormal lab results 12/12/21 12/12/21 12/13/21 Range/Units 20:50 20:50 02:06 WBC 12.2 H (4.5-11.0) K/mm3 MCH 27 L (28-32) pg RDW 15.5 H (13.2-15.2) % Seg Neutrophils % 78.2 H (40.0-70.0) % Seg Neutrophils # 9.5 H (1.8-7.7) K/mm3 Sodium 136 L (137-145) mmol/L Creatinine 0.4 L (0.6-1.2) mg/dL Glucose 107 H (65-100) mg/dL Urine pH 8.0 H (5.0-7.0) Diabetes panel 12/12/21 Range/Units 20:50 Sodium 136 L (137-145) mmol/L Potassium 3.7 (3.6-5.0) mmol/L Chloride 99.2 (98-107) mmol/L Carbon Dioxide 22 (22-30) mmol/L BUN 9 (7-17) mg/dL Creatinine 0.4 L (0.6-1.2) mg/dL Glucose 107 H (65-100) mg/dL Calcium 9.1 (8.4-10.2) mg/dL AST 18 (5-40) units/L ALT 24 (7-56) units/L Alkaline Phosphatase 92 (35-129) units/L Total Protein 7.8 (6.3-8.2) g/dL Albumin 4.5 (3.9-5) g/dL Calcium panel 12/12/21 Range/Units 20:50 Calcium 9.1 (8.4-10.2) mg/dL Albumin 4.5 (3.9-5) g/dL Pituitary panel 12/12/21 Range/Units 20:50 Sodium 136 L (137-145) mmol/L Potassium 3.7 (3.6-5.0) mmol/L Chloride 99.2 (98-107) mmol/L Carbon Dioxide 22 (22-30) mmol/L BUN 9 (7-17) mg/dL Creatinine 0.4 L (0.6-1.2) mg/dL Glucose 107 H (65-100) mg/dL Calcium 9.1 (8.4-10.2) mg/dL Adrenal panel 12/12/21 Range/Units 20:50 Sodium 136 L (137-145) mmol/L Potassium 3.7 (3.6-5.0) mmol/L Chloride 99.2 (98-107) mmol/L Carbon Dioxide 22 (22-30) mmol/L BUN 9 (7-17) mg/dL Creatinine 0.4 L (0.6-1.2) mg/dL Glucose 107 H (65-100) mg/dL Calcium 9.1 (8.4-10.2) mg/dL Total Bilirubin 0.30 (0.1-1.2) mg/dL AST 18 (5-40) units/L ALT 24 (7-56) units/L Alkaline Phosphatase 92 (35-129) units/L Total Protein 7.8 (6.3-8.2) g/dL Albumin 4.5 (3.9-5) g/dL - Imaging US - abdomen: report reviewed, image reviewed Assessment and Plan 35-year-old female with cholelithiasis and likely cholecystitis. Patient is afebrile and stable with mild leukocytosis. Discussed pathology and surgery with the patient expressed understanding. Patient is scheduled as an add-on for surgery tomorrow for cholecystectomy. Patient can have clear liquids today and made n.p.o. after midnight.
[2021-12-13] MEDS: ONDANSETRON 4 MG/2 ML INJ IV PRN ×2 (16:11→23:00)
[2021-12-13] MEDS: PANTOPRAZOLE 40 MG INJ IV SCH ×2 (18:45→21:37)
--- NOTE | 2021-12-13 20:21 | Event Note ---
Date: 12/13/21 Patient seen and evaluated Patient with cholelithiasis and possible cholecystitis For cholecystectomy tomorrow Patient stable Medically cleared for surgery
[2021-12-13] MEDS: D5W/0.45% NACL 1,000 ML IV SCH (22:57)
[2021-12-14] MEDS: PIPERACIL/TAZOBACTA 4.5/NS 100 4.5 GM/100 ML VIAL IV SCH ×3 (01:38→19:05)
[2021-12-14] MEDS: MORPHINE 4 MG/1 ML INJ IV PRN ×3 (02:57→20:34)
[2021-12-14 05:53] LABS: Basophils % (Auto) 0.1 % (0.0-1.8); Hematocrit 32.3 % (30.3-42.9); Hemoglobin 10.7 gm/dl (10.1-14.3); Lymphocytes # (Auto) 0.7 K/mm3 (1.2-5.4); Mean Corpuscular HGB Conc 33 % (30-34); Mean Corpuscular Volume 81 fl (79-97); Monocytes # (Auto) 1.2 K/mm3 (0.0-0.8); Monocytes % (Auto) 9.6 % (0.0-7.3); Platelet Count 231 K/mm3 (140-440); Red Blood Count 3.99 M/mm3 (3.65-5.03); Red Cell Distribution Width 15.5 % (13.2-15.2)
[2021-12-14 06:14] LABS: BUN/Creatinine Ratio 14; Blood Urea Nitrogen 7 mg/dL (7-17); Calcium 8.3 mg/dL (8.4-10.2); Hemolysis Index 4
[2021-12-14] MEDS ORDERED: ONDANSETRON 4 MG/2 ML INJ ONE (07:14)
[2021-12-14] MEDS ORDERED: ROCURONIUM 50 MG/5 ML INJ IV ONE (07:14)
[2021-12-14] MEDS ORDERED: propofoL 200 MG/20 ML VIAL IV ONE (07:14)
[2021-12-14] MEDS ORDERED: LIDOCAINE MPF (2%) 20 MG/1 ML VIAL 5 ML ONE (07:14)
[2021-12-14] MEDS ORDERED: dexAMETHasone 20 MG/5 ML VIAL ONE (07:14)
[2021-12-14] MEDS ORDERED: MIDAZOLAM 2 MG/2 ML INJ ONE (07:15)
[2021-12-14] MEDS ORDERED: fentaNYL 100 MCG/2 ML INJ ONE ×2 (07:15→09:32)
[2021-12-14] MEDS ORDERED: BUPIVACAINE/PF (0.5%) 5 MG/1 ML 30 ML VIAL INFILTRATI ONE ×2 (07:23→08:47)
[2021-12-14] MEDS ORDERED: LIDOCAINE 2%/EPINEPHRINE 1:200,000 VIAL (20 ML) INFILTRATI ONE (07:23)
[2021-12-14] MEDS ORDERED: ONDANSETRON 4 MG/2 ML INJ IV PRN (07:49)
[2021-12-14] MEDS ORDERED: HYDROmorphone 0.5 MG/0.5 ML INJ IV PRN ×2 (07:49)
--- NOTE | 2021-12-14 07:50 | Anesthesia Day of Surgery ---
Anesthesia Day of Surgery - Day of Surgery Patient Examined: Yes Patient H&P Reviewed: Yes Patient is NPO: Yes
--- NOTE | 2021-12-14 07:52 | Anesthesia Consultation ---
Anesthesia Consult and Med Hx Date of service: 12/14/21 - Airway Anesthetic Teeth Evaluation: Good ROM Head & Neck: Adequate Mental/Hyoid Distance: Adequate Mallampati Class: Class I Intubation Access Assessment: Good - Pre-Operative Health Status ASA Pre-Surgery Classification: ASA1 Proposed Anesthetic Plan: General - Pulmonary Hx Smoking: No Hx Asthma: No COPD: No Hx Pneumonia: No Hx Sleep Apnea: No - Cardiovascular System Hx Hypertension: No - Central Nervous System Hx Seizures: No Hx Psychiatric Problems: Yes - Gastrointestinal Hx Gastroesophageal Reflux Disease: No - Endocrine Hx Renal Disease: No Hx End Stage Renal Disease: No Hx Hypothyroidism: No Hx Hyperthyroidism: No - Hematic Hx Anemia: No Hx Sickle Cell Disease: No - Other Systems Hx Alcohol Use: No Hx Obesity: Yes
[2021-12-14] MEDS ORDERED: MINERAL OIL Light (Sterile) 10 ML VIAL TP ONE ×2 (08:36→08:48)
[2021-12-14] MEDS ORDERED: LIDOCAINE 2%/EPINEPHRINE 1:100,000 VIAL (20 ML) INFILTRATI ONE (08:47)
[2021-12-14] MEDS ORDERED: SODIUM CHLORIDE 0.9% IRR 1,500 ML BOTTLE IR ONE (08:48)
[2021-12-14] MEDS ORDERED: SODIUM CHLORIDE 0.9% IRRIG SOLN 2000 ML IR ONE (09:31)
[2021-12-14] MEDS ORDERED: KETOROLAC 30 MG/1 ML INJ ONE (09:32)
--- NOTE | 2021-12-14 10:17 | Operative Report ---
Operative Report Operative Report: Procedure Performed: Lap cholecystectomy Dates of Service: 12/14/2021 Primary Surgeon: Mima Neal MD Assisted by: Cleopatra Mckinney DO Anesthesia: General Pre-Operative Diagnosis: cholelithiasis, cholecystitis Post-Operative Diagnosis: Cholelithiasis, cholecystitis with hydrops Indications for Procedure: Patient a 35-year-old female presents to the emergency room with a 2 to 3-day history of right upper quadrant pain nausea and vomiting. On ultrasound she was found to have a large gallstone in neck of her gallbladder. Patient had slightly elevated white count. Patient was consented for laparoscopic cholecystectomy. Description of Procedure(s): The patient was brought to the operating room and underwent general anesthesia after lower extremity SCD were placed. The abdomen was prepped and draped in the standard fashion. IV antibiotics were given and a time out was performed. Using a veress needle via a stab incision in the left subcostal region, the abdomen was insuflated to a pressure of 15mmHg. Using optivew technique, a 5mm trocar was placed just superior and to the left of the umbilicus. There was no gross injury noted to any intra-abdominal structures. After which working trocars were placed under direct visualization. A 12 mm trocar was placed in the epigastrium, and two more 5 mm trocars were inserted in the right lateral sites. The gallbladder was located and grasped at the fundus and retracted up toward the patient's right shoulder. Prior to being able to grasp the fundus of the gallbladder it was decompressed and clear bile was aspirated. The infundibulum was grasped and retracted laterally. A window was made between the cystic artery and the cystic duct, clearly delineating the two structures. These were clipped with a 5 mm clip information technology auditor and divided. The peritoneum was incised with hook cautery, and the gallbladder was taken from the liver bed, ensuring hemostatis. Surgicel powder was sprayed onto the liver bed for mild generalized oozing. The endocatch bag was placed in the abdomen and the gallbladder was then removed from the abdomen after the skin and fashion as the area had to be incised to make the opening large enough to accommodate the large gallbladder. The insufflation was then terminated. The epigastric incision was closed with an 0 Vicryl. The skin incisions were closed using 4-0 Monocryl sutures. All the wounds dressed with dermabond. The patient tolerated the procedure well, was extubated and taken to the recovery room in satisfactory condition. Finding(s): Hydrops gallbladder with large gallstone stuck in the neck of the gallbladder, significant edema of the gallbladder wall Intra-Operative Complications: none Specimens Removed: Gallbladder Estimated Blood Loss: <15ml Complications: none immediate
[2021-12-14] MEDS: PANTOPRAZOLE 40 MG INJ IV SCH ×2 (10:54→21:13)
[2021-12-14] MEDS: HEPARIN 5,000 UNIT/1 ML VIAL SUB-Q SCH ×2 (11:59→21:12)
[2021-12-14] MEDS: KETOROLAC 30 MG/1 ML INJ IV SCH ×2 (11:59→19:23)
[2021-12-14] MEDS: MULTIVITAMINS ,THERAPEUTIC TAB PO SCH (11:59)
[2021-12-14] MEDS: PANTOPRAZOLE 40 MG TAB PO SCH ×2 (12:04→16:37)
[2021-12-14] MEDS: MORPHINE 2 MG/1 ML INJ IV PRN (14:06)
--- NOTE | 2021-12-14 16:05 | Post Anesthesia Evaluation ---
- Post Anesthesia Evaluation Patient Participated: Yes Airway Patent: Yes Stable Respiratory Function: Yes Nausea/Vomiting: No Temp > 96.8F: Yes Pain Manageable: Yes Adequeate Hydration: Yes Anesthesia Complications: No Block Receding Appropriately: Not Applicable Patient on Ventilator: No
[2021-12-14] MEDS: D5W/0.45% NACL 1,000 ML IV SCH (16:39)
[2021-12-14] MEDS: oxyCODONE /ACETAMINOPHEN 5-325MG TAB PO PRN ×2 (16:42→23:08)
--- NOTE | 2021-12-14 17:08 | Progress Note ---
Assessment and Plan Assessment and Plan VTE prophylaxis?: Chemical Plan of care discussed with patient/family: Yes - Patient Problems (1) Cholelithiasis Status: Acute Plan to address problem: S/p cholecystectomy Postop patient doing well 2) Intractable abdominal pain Status: Acute Plan to address problem: Improved Started on clears (3) Intractable nausea and vomiting Status: Acute Plan to address problem: Improved (4) History of 2 sections Status: Acute Plan to address problem: Stable. (5) DVT prophylaxis Status: Acute Plan to address problem: Heparin 5000 units subcu every 12 hours for DVT prophylaxis. Pepcid 20 mg IV ev julio césar 12 hours for GI prophylaxis. Patient is a full code Discharge planning issues Possible discharge tomorrow Subjective Date of service: 12/14/21 Principal diagnosis: Cholecystitis Interval history: 35 year-old female no significant past medical history presents to the hospital from urgent care clinic with abdominal pain. Patient has had upper quadrant pain since this morning with associated nausea and vomiting. No fever reported. hx of x 3. Pain is moderate to severe in intensity, worse with palpation, and no alleviating factors reported. No urinary symptoms reported. CT findings show gallbladder neck stone and distention. Cannot rule out acute cholecystitis. Patient has mild elevation in WBC count without elevated LFTs, lipase, fever, or tachycardia. Case discussed with general surgery who will consult. Patient will be admitted to the hospitalist. 12/14/2021 S/p cholecystectomy Patient doing well postop No complications Objective - Constitutional Vitals: Vital Signs - 12hr 12/14/21 12/14/21 12/14/21 10:08 10:13 10:18 Temperature 97.9 F Pulse Rate 99 H 77 75 Respiratory 12 14 13 Rate Blood Pressure 116/77 108/61 104/55 O2 Sat by Pulse 100 100 100 Oximetry 12/14/21 12/14/21 12/14/21 10:30 10:40 10:45 Temperature Pulse Rate 81 77 Respiratory 15 18 13 Rate Blood Pressure 120/68 116/63 O2 Sat by Pulse 100 99 97 Oximetry 12/14/21 12/14/21 12/14/21 11:00 11:19 16:08 Temperature 97.0 F L 97.0 F L Pulse Rate 79 77 83 Respiratory 17 18 18 Rate Blood Pressure 112/65 108/59 113/57 O2 Sat by Pulse 98 95 90 Oximetry 12/14/21 12/14/21 16:11 16:42 Temperature Pulse Rate Respiratory 18 Rate Blood Pressure O2 Sat by Pulse 95 Oximetry General appearance: Present: no acute distress, well-nourished - EENT Eyes: PERRL, EOM intact ENT: hearing intact, clear oral mucosa Ears: bilateral: normal - Neck Neck: supple, normal ROM - Respiratory Respiratory effort: normal Respiratory: bilateral: CTA - Breasts Breasts: normal - Cardiovascular Heart rate: 76 Rhythm: regular Heart Sounds: Present: S1 & S2. Absent: gallop, rub Extremities: pulses intact, No edema, normal color, Full ROM - Gastrointestinal General gastrointestinal: Present: soft, non-tender, non-distended, normal bowel sounds - Genitourinary Female genitourinary: normal - Integumentary Integumentary: clear, warm, dry - Musculoskeletal Musculoskeletal: 1, strength equal bilaterally - Neurologic Neurologic: moves all extremities - Psychiatric Psychiatric: memory intact, appropriate mood/affect, intact judgment & insight - Labs CBC & Chem 7: 12/15/21 05:53 12/15/21 05:53 Labs: Abnormal lab results 12/14/21 12/14/21 Range/Units 05:12 05:12 WBC 12.5 H (4.5-11.0) K/mm3 MCH 27 L (28-32) pg RDW 15.5 H (13.2-15.2) % Lymph % (Auto) 6.0 L (13.4-35.0) % Cedar % (Auto) 9.6 H (0.0-7.3) % Lymph # (Auto) 0.7 L (1.2-5.4) K/mm3 Cedar # (Auto) 1.2 H (0.0-0.8) K/mm3 Seg Neutrophils % 84.3 H (40.0-70.0) % Seg Neutrophils # 10.6 H (1.8-7.7) K/mm3 Sodium 132 L (137-145) mmol/L Potassium 3.2 L (3.6-5.0) mmol/L Creatinine 0.5 L (0.6-1.2) mg/dL Glucose 161 H (65-100) mg/dL Calcium 8.3 L (8.4-10.2) mg/dL
[2021-12-15] MEDS: KETOROLAC 30 MG/1 ML INJ IV SCH ×4 (00:52→17:10)
[2021-12-15] MEDS: PIPERACIL/TAZOBACTA 4.5/NS 100 4.5 GM/100 ML VIAL IV SCH ×3 (02:45→17:11)
[2021-12-15] MEDS: MORPHINE 4 MG/1 ML INJ IV PRN ×3 (04:44→21:44)
[2021-12-15 06:31] LABS: Hematocrit 27.9 % (30.3-42.9); Hemoglobin 9.4 gm/dl (10.1-14.3); Lymphocytes # (Auto) 1.3 K/mm3 (1.2-5.4); Lymphocytes % (Auto) 12.4 % (13.4-35.0); Mean Corpuscular HGB Conc 34 % (30-34); Mean Corpuscular Volume 82 fl (79-97); Monocytes # (Auto) 0.8 K/mm3 (0.0-0.8); Monocytes % (Auto) 7.8 % (0.0-7.3); Platelet Count 221 K/mm3 (140-440); Red Blood Count 3.43 M/mm3 (3.65-5.03); Red Cell Distribution Width 15.4 % (13.2-15.2)
[2021-12-15 06:54] LABS: Alanine Aminotransferase 30 units/L (7-56); Albumin 3.2 g/dL (3.9-5); Blood Urea Nitrogen 10 mg/dL (7-17); Calcium 8.3 mg/dL (8.4-10.2); Hemolysis Index 8
[2021-12-15 06:55] LABS: BUN/Creatinine Ratio 20
[2021-12-15] MEDS: MORPHINE 2 MG/1 ML INJ IV PRN (07:45)
[2021-12-15] MEDS: PANTOPRAZOLE 40 MG TAB PO SCH ×2 (08:31→16:48)
[2021-12-15] MEDS: HEPARIN 5,000 UNIT/1 ML VIAL SUB-Q SCH ×2 (09:06→21:44)
[2021-12-15] MEDS: MULTIVITAMINS ,THERAPEUTIC TAB PO SCH (09:06)
[2021-12-15] MEDS: oxyCODONE /ACETAMINOPHEN 5-325MG TAB PO PRN ×2 (10:44→18:23)
--- NOTE | 2021-12-15 12:49 | Progress Note ---
Assessment and Plan POD#1 s/p lap geri. Afebrile and stable doing well.OK to discharge from surgery perspective. Can follow up in the office in two weeks. [phone] Advance diet as tolerated, avoid fatty greasy food. Subjective Date of service: 12/15/21 Narrative: No acute events overnight. Pt is tolerating diet and complains of post surgical pain that controlled with meds. Objective Vital Signs - 12hr 12/15/21 11:03 O2 Sat by Pulse 98 Oximetry - General physical appearance well developed, no distress, moderate pain - ENT no hearing loss - Respiratory normal expansion, normal respiratory effort - Abdomen soft, not distended, other (incisions c/d/i, appropriatley tender to palpation) - Labs 12/15/21 05:53 12/15/21 05:53 Diabetes panel 12/15/21 Range/Units 05:53 Sodium 137 (137-145) mmol/L Potassium 3.2 L (3.6-5.0) mmol/L Chloride 103.9 (98-107) mmol/L Carbon Dioxide 23 (22-30) mmol/L BUN 10 (7-17) mg/dL Creatinine 0.5 L (0.6-1.2) mg/dL Glucose 128 H (65-100) mg/dL Calcium 8.3 L (8.4-10.2) mg/dL AST 24 (5-40) units/L ALT 30 (7-56) units/L Alkaline Phosphatase 72 (35-129) units/L Total Protein 6.8 (6.3-8.2) g/dL Albumin 3.2 L (3.9-5) g/dL Calcium panel 12/15/21 Range/Units 05:53 Calcium 8.3 L (8.4-10.2) mg/dL Albumin 3.2 L (3.9-5) g/dL Pituitary panel 12/15/21 Range/Units 05:53 Sodium 137 (137-145) mmol/L Potassium 3.2 L (3.6-5.0) mmol/L Chloride 103.9 (98-107) mmol/L Carbon Dioxide 23 (22-30) mmol/L BUN 10 (7-17) mg/dL Creatinine 0.5 L (0.6-1.2) mg/dL Glucose 128 H (65-100) mg/dL Calcium 8.3 L (8.4-10.2) mg/dL Adrenal panel 12/15/21 Range/Units 05:53 Sodium 137 (137-145) mmol/L Potassium 3.2 L (3.6-5.0) mmol/L Chloride 103.9 (98-107) mmol/L Carbon Dioxide 23 (22-30) mmol/L BUN 10 (7-17) mg/dL Creatinine 0.5 L (0.6-1.2) mg/dL Glucose 128 H (65-100) mg/dL Calcium 8.3 L (8.4-10.2) mg/dL Total Bilirubin 0.30 (0.1-1.2) mg/dL AST 24 (5-40) units/L ALT 30 (7-56) units/L Alkaline Phosphatase 72 (35-129) units/L Total Protein 6.8 (6.3-8.2) g/dL Albumin 3.2 L (3.9-5) g/dL
--- NOTE | 2021-12-15 14:14 | Discharge Summary ---
Providers - Providers Date of Admission: 12/13/21 02:42 Date of discharge: 12/15/21 Attending physician: SUSAN SERRANO 12/13/21 02:17 Consult to Physician [CONS] Urgent Comment: Dr. Melissa spoke with Dr. Neal @ [phone] Consulting Provider: ALMA NEAL Physician Instructions: Reason For Exam: gallbladder distention, stone, n,v,pain Primary care physician: SAYRA LASSITER Hospitalization Condition: Stable Disposition: 30 STILL A PATIENT Exam - Constitutional Vitals: Temp Pulse Resp BP Pulse Ox 97.0 F L 83 16 113/57 98 12/14/21 16:08 12/14/21 16:08 12/15/21 00:00 12/14/21 16:08 12/15/21 11:03 Plan Follow up with: SAYRA LASSITER MD [Primary Care Provider] - 7 Days
[2021-12-15] MEDS: ONDANSETRON 4 MG/2 ML INJ IV PRN (21:44)
[2021-12-16] MEDS: KETOROLAC 30 MG/1 ML INJ IV SCH ×2 (00:51→05:45)
[2021-12-16] MEDS: PIPERACIL/TAZOBACTA 4.5/NS 100 4.5 GM/100 ML VIAL IV SCH ×2 (00:52→01:02)
[2021-12-16] MEDS: PANTOPRAZOLE 40 MG TAB PO SCH (08:56)
[2021-12-16 11:02] VITALS: BP 128/74
== END 2021-12-16 09:30 | disposition home or self-care (01) | DRG 419 ==
LOC: ED 19:22 → 3A 12-13 02:42
PROVIDERS: ADMIT Hospitalist; ATTEND Internal Medicine
PROC: 0FT44ZZ Resection of Gallbladder, Percutaneous Endoscopic Approach (ICD-10-PCS; principal; 2021-12-14)
DX: K80.60 Calculus of gallbladder and bile duct with cholecystitis, unspecified, without obstruction (principal); F32.9 Major depressive disorder, single episode, unspecified; I10 Essential (primary) hypertension
CPT/HCPCS: 36415; 76705; 80048; 80053; 81001; 83690; 84702; 85025; 88304; G0378; J3490; J7070; C9113; J0696; J1100; J1170; J1644; J1885; J2250; J2270; J2405; J2543; J2704; J3010; J7030